=== PATIENT | female | born 1995 | race American Indian/Alaskan Native ===

== ENCOUNTER 2018-01-28 09:28 | Inpatient (IN) | payer OTHER ==
[2018-01-28 09:44] VITALS: BMI 27.3
--- NOTE | 2018-01-28 10:23 | C.PDOC ---
History Of Present Illness 22 y/o female presents to the ED requesting detox for heroin. Patient is currently 5 months and an active heroin user, last used this morning. Admits she also smokes marijuana. LMP was sometime in August 2017. Patient reports she was evaluated at [facility], and had a normal ultrasound 1 month ago. Currently she denies any abdominal pain, vaginal bleeding, discharge, fever, or other complaints. Also denies any suicidal or homicidal ideation. Time Seen by Provider: 01/28/18 09:57 Chief Complaint (Nursing): Substance Abuse History Per: Patient History/Exam Limitations: no limitations Onset/Duration Of Symptoms: Days Current Symptoms Are (Timing): Still Present Modifying Factor(s): Other (IV Heroin) Associated Symptoms: denies: Suicidal Thoughts, Suicidal Plan Past Medical History Reviewed: Historical Data, Nursing Documentation, Vital Signs Vital Signs: Last Vital Signs Temp 99.3 F 01/28/18 09:45 Pulse 102 H 01/28/18 09:45 Resp 17 01/28/18 09:45 BP 111/70 01/28/18 09:45 Pulse Ox 100 01/28/18 09:45 - Medical History Other PMH: Substance abuse Surgical History: No Surg Hx Family History: States: No Known Family Hx - Social History Hx Tobacco Use: Yes Hx Alcohol Use: No Hx Substance Use: Yes (heroin, marijuana) - Immunization History Hx Tetanus Toxoid Vaccination: No Hx Influenza Vaccination: No Hx Pneumococcal Vaccination: No Review Of Systems Constitutional: Negative for: Fever, Chills Cardiovascular: Negative for: Chest Pain Respiratory: Negative for: Shortness of Breath Gastrointestinal: Negative for: Nausea, Vomiting, Abdominal Pain, Diarrhea Genitourinary: Negative for: Dysuria, Vaginal Discharge, Vaginal Bleeding Physical Exam - Physical Exam Appears: Non-toxic, No Acute Distress Skin: Warm, Dry Head: Atraumatic, Normacephalic Eye(s): bilateral: Normal Inspection, PERRL, EOMI Oral Mucosa: Moist Neck: Normal ROM Chest: Symmetrical Cardiovascular: Rhythm Regular, No Murmur Respiratory: Normal Breath Sounds, No Accessory Muscle Use Gastrointestinal/Abdominal: Soft, No Tenderness, No Distention, No Guarding Back: Normal Inspection Extremity: Bilateral: Atraumatic, Normal Color And Temperature, Normal ROM Neurological/Psych: Oriented x3, Normal Speech ED Course And Treatment O2 Sat by Pulse Oximetry: 100 (RA) Pulse Ox Interpretation: Normal Medical Decision Making Medical Decision Making: Plan: Blood work and urine sent to the lab. Spoke with animal shelter worker, patient will also need OB consult. Disposition - Disposition - PA / ORGANIZATIONAL DEVELOPMENT MANAGER / Resident Statement MD/DO has reviewed & agrees with the documentation as recorded. - Scribe Statement The provider has reviewed the documentation as recorded by the Scribe (La Pa) All medical record entries made by the Scribe were at my direction and personally dictated by me. I have reviewed the chart and agree that the record accurately reflects my personal performance of the history, physical exam, medical decision making, and the department course for this patient. I have also personally directed, reviewed, and agree with the discharge instructions and disposition.
[2018-01-28 10:38] LABS: BASO # 0.1 K/uL (0.0-0.2); EOS # 0.1 K/uL (0.0-0.7); HEMOGLOBIN 11.2 g/dL (11.0-16.0); LYMPH # 2.1 K/uL (1.0-4.3); LYMPH % 19.7 % (20.0-40.0); MEAN CELL VOLUME 82.3 fL (81.0-99.0); MEAN CORPUSCULAR HEMOGLOBIN 27.7 pg (27.0-31.0); MEAN CORPUSCULAR HGB CONC 33.6 g/dL (33.0-37.0); MEAN PLATELET VOLUME 7.1 fL (7.2-11.7); MONO # 0.8 K/uL (0.0-0.8); MONO % 7.3 % (0.0-10.0); NEUT # 7.5 K/uL (1.8-7.0); NRBC % 0.1 % (0.0-2.0); RBC 4.04 Mil/uL (3.80-5.20); RED CELL DISTRIBUTION WIDTH 14.7 % (11.5-14.5); WHITE BLOOD COUNT 10.5 K/uL (4.8-10.8)
--- NOTE | 2018-01-28 10:40 | C.PDOC ---
History Of Present Illness 22 y/o female presents to the ED requesting detox for heroin. Patient is currently 5 months and an active heroin user, last used this morning. Admits she also smokes marijuana. LMP was sometime in August 2017. Patient reports she was evaluated at [facility], and had a normal ultrasound 1 month ago. Currently she denies any abdominal pain, vaginal bleeding, discharge, fever, or other complaints. Also denies any suicidal or homicidal ideation. Time Seen by Provider: 01/28/18 09:57 Chief Complaint (Nursing): Substance Abuse History Per: Patient History/Exam Limitations: no limitations Onset/Duration Of Symptoms: Hrs Current Symptoms Are (Timing): Still Present Modifying Factor(s): Other (IV heroin) Associated Symptoms: denies: Suicidal Thoughts, Suicidal Plan Past Medical History Reviewed: Historical Data, Nursing Documentation, Vital Signs Vital Signs: Last Vital Signs Temp 99.3 F 01/28/18 09:45 Pulse 102 H 01/28/18 09:45 Resp 17 01/28/18 09:45 BP 111/70 01/28/18 09:45 Pulse Ox 100 01/28/18 10:26 - Medical History Other PMH: Substance abuse Surgical History: No Surg Hx Family History: States: No Known Family Hx - Social History Hx Tobacco Use: Yes Hx Alcohol Use: No Hx Substance Use: Yes (heroin, marijuana) - Immunization History Hx Tetanus Toxoid Vaccination: No Hx Influenza Vaccination: No Hx Pneumococcal Vaccination: No Review Of Systems Constitutional: Negative for: Fever, Chills Cardiovascular: Negative for: Chest Pain Respiratory: Negative for: Shortness of Breath Gastrointestinal: Negative for: Nausea, Vomiting, Abdominal Pain Genitourinary: Negative for: Dysuria, Vaginal Discharge, Vaginal Bleeding Physical Exam - Physical Exam Appears: Non-toxic, No Acute Distress Skin: Normal Color, Warm, Dry Head: Atraumatic, Normacephalic Eye(s): bilateral: Normal Inspection, PERRL, EOMI Oral Mucosa: Moist Neck: Normal ROM Chest: Symmetrical Cardiovascular: Rhythm Regular, No Murmur Respiratory: Normal Breath Sounds, No Rales, No Rhonchi, No Wheezing Gastrointestinal/Abdominal: Bowel Sounds (normal), Soft, No Tenderness, No Guarding Back: Normal Inspection Extremity: Bilateral: Atraumatic, Normal Color And Temperature Neurological/Psych: Oriented x3, Normal Speech ED Course And Treatment - Laboratory Results Result Diagrams: 01/28/18 10:34 01/28/18 10:34 Lab Interpretation: Normal Urine POC: Positive O2 Sat by Pulse Oximetry: 100 (RA) Pulse Ox Interpretation: Normal - CT Scan/US OB ultrasound Other Rad Studies (CT/US): Read By Radiologist, Radiology Report Reviewed CT/US Interpretation: Accession No. : [id number]. Patient Name / ID : PARKER FAULKNER N / [id number]. Exam Date : 01/28/2018 11:50:04 ( Approved ). Study Comment : Sex / Age : F / 22Y. Creator : Daja العراقي V. Dictator : Daja العراقي V. Curriculum Development Manager : Mailer Apprentice : Daja العراقي V. Approver2 : Report Date : 01/28/2018 13:24:19. My Comment : . Date of service: 01/28/2018. PROCEDURE: OB Pelvic Ultrasound. HISTORY: abdominal pain. LMP: 09/03/2017. COMPARISON: None available. FINDINGS: UTERUS: Gestational sac: Single intrauterine gestation. Heart rate: 144 bpm. age (Ultrasound estimated): 14 weeks 2 days +/-1 week 0 days. Patricia-gestational hemorrhage: None. Date of delivery (Ultrasound estimated) : 07/27/2018. Anterior placenta. The inferior edge of the placenta is probably just at and/or just slightly greater than 2 cm from the cervix. Imaging here somewhat limited. presentation is breech. anatomy is limited. BPD 2.54 cm corresponds to 14 weeks 3 days. Abdominal circumference 7.94 cm corresponds to 14 weeks 2 days. Head circumference 9.36 cm corresponds to 14 weeks 2 days. Femur length 1.35 cm corresponds to 14 weeks 0 days. Uterus unremarkable. No gross uterine masses seen. CERVIX: Measures 3.8 cm. Long and closed. No cervical abnormality seen. RIGHT OVARY: Not visualized. LEFT OVARY: Not visualized. FREE FLUID: None. OTHER FINDINGS: None. IMPRESSION: Single intrauterine gestation with normal cardiac activity. presentation at this time is breech. Placenta is anterior. The inferior edge of the placenta is somewhat limited in terms of its optimal visualization is estimated to be approximately 2 cm from the int ernal cervical os. Continued follow-up here recommended. Patient's ultrasound complex sent age is 14 weeks 2 days +/-1 week 0 days gestation. This contrasts with the clinical dates per LMP of a gestational age of 21 weeks 0 days. anatomy limited. Follow-up recommended. Progress Note: Case discussed and patient evaluated by spout worker who request OB consult. Case discussed with JOB PRESS OPERATOR Dr Thomas who request US. Case discussed with dining service worker who request admission to Detox Reassessment Condition: Unchanged - Physician Consult Information Physician Contacted: Denise Infante Outcome Of Conversation: admit Medical Decision Making Medical Decision Making: Plan: Blood work and urine sent for medical clearance. Spoke with dining service worker, patient will also need OB consult. Discussed with OB on-call, Dr. Thomas, who will come to evaluate patient in the ED. Requesting ultrasound. Ultrasound reviewed, shows single IUP with gestational age of 14 weeks 2 days +/-1 week. Still pending urine drug screen. 16:20 All labs back, and reviewed. U-tox (+) for cannabinoids and opiates. Patient is medically cleared for detox, notified crisis/detox team. Disposition Discussed With .: Denise Infante Doctor Will See Patient In The: Hospital - Disposition Disposition: HOSPITALIZED Disposition Time: 16:40 Condition: STABLE Forms: wishkicker (Kinyarwanda) - POA Present On Arrival: None - Clinical Impression Clinical Impression: Drug dependence - PA / DEPENDENCY COUNSELOR / Resident Statement MD/DO has reviewed & agrees with the documentation as recorded. - Scribe Statement The provider has reviewed the documentation as recorded by the Scribe (La Pa) All medical record entries made by the Scribe were at my direction and p ersonally dictated by me. I have reviewed the chart and agree that the record accurately reflects my personal performance of the history, physical exam, medical decision making, and the department course for this patient. I have also personally directed, reviewed, and agree with the discharge instructions and disposition. Decision To Admit - Pt Status Changed To: Hospital Disposition Of: Inpatient - Admit Certification Admit to Inpatient:: After my assessment, the patient will require hospi talization for at least two midnights. This is because of the severity of symptoms shown, intensity of services needed, and/or the medical risk in this patient being treated as an outpatient. - InPatient: Physician Admission Certification: I certify that this patient requires 2 or more midnights of care for the following reason:: opioid dependence - . Bed Request Type: Detox Patient Diagnosis: Drug abuse
[2018-01-28 10:56] LABS: ALB/GLOB RATIO 1.4 (1.0-2.1); ALBUMIN 3.5 g/dL (3.5-5.0); ALT/SGPT 15 U/L (9-52); AST/SGOT 14 U/L (14-36); BLOOD UREA NITROGEN 7 mg/dL (7-17); CALCIUM 8.7 mg/dl (8.6-10.4); GFR NON-AFRICAN AMERICAN > 60
--- NOTE | 2018-01-28 13:28 | US ---
Date of service: 01/28/2018 PROCEDURE: OB Pelvic Ultrasound HISTORY: abdominal pain LMP: 09/03/2017 COMPARISON: None available. FINDINGS: UTERUS: Gestational sac: Single intrauterine gestation. Heart rate: 144 bpm. age (Ultrasound estimated): 14 weeks 2 days +/-1 week 0 days. Patricia-gestational hemorrhage: None. Date of delivery (Ultrasound estimated) : 07/27/2018 Anterior placenta. The inferior edge of the placenta is probably just at and/or just slightly greater than 2 cm from the cervix. Imaging here somewhat limited. presentation is breech. anatomy is limited. BPD 2.54 cm corresponds to 14 weeks 3 days. Abdominal circumference 7.94 cm corresponds to 14 weeks 2 days. Head circumference 9.36 cm corresponds to 14 weeks 2 days. Femur length 1.35 cm corresponds to 14 weeks 0 days. Uterus unremarkable. No gross uterine masses seen. CERVIX: Measures 3.8 cm. Long and closed. No cervical abnormality seen. RIGHT OVARY: Not visualized LEFT OVARY: Not visualized. FREE FLUID: None. OTHER FINDINGS: None. IMPRESSION: Single intrauterine gestation with normal cardiac activity. presentation at this time is breech. Placenta is anterior. The inferior edge of the placenta is somewhat limited in terms of its optimal visualization is estimated to be approximately 2 cm from the internal cervical os. Continued follow-up here recommended. Patient's ultrasound complex sent age is 14 weeks 2 days +/-1 week 0 days gestation. This contrasts with the clinical dates per LMP of a gestational age of 21 weeks 0 days. anatomy limited. Follow-up recommended.
[2018-01-28 14:50] LABS: HCG,QUALITATIVE URINE POSITIVE (NEGATIVE)
[2018-01-28 14:52] LABS: SQUAMOUS EPITHIAL 2 /hpf (0-5); URINE BILIRUBIN NEGATIVE (NEGATIVE); URINE BLOOD NEGATIVE (NEGATIVE); URINE CLARITY Clear (Clear); URINE COLOR Yellow (YELLOW); URINE GLUCOSE (UA) NORMAL (Normal); URINE LEUKOCYTE ESTERASE NEG Leu/uL (Negative); URINE PROTEIN 1+ mg/dL (NEGATIVE)
--- NOTE | 2018-01-28 15:16 | CP.PCM.CON ---
<Danie Patterson - Last Filed: 01/28/18 15:33> History of Present Illness - History of Present Illness History of Present Illness: OB-TIE HACKER Consult Note for Dr. Thomas This is a 22 y o female , PMhx heroin abuse presents to ED requesting detox. Reason for OB-TIE HACKER consult was for IUP present on sonogram. Pt states that her LMP was 08/28/17, was aware that she was but did not know how many weeks along she was. C/o abd pain and cramping, started today as per pt. Denied any inciting factors. Localized pain to diffuse b/l lower abd region. Pain radiates to lower back. Stated nothing makes pain better or worse. Did not take any pain meds at home for symptoms. Denied vaginal bleeding, vaginal discharge, dysuria, burning with urination, or flank pain. Denied fever/chills, headache, dizziness, chest pain, sob, n/v/d/c, or other symptoms. PMhx: heroin abuse PSurgHx: denies Allergies: shellfish Home meds: denies Fam hx: denies Soc hx: no smoking or EtOH use; admits to heroin use and marijuana use; sexually active sometimes using condoms PGynHx: last pap smear neg as per pt in 2018, no hx STDs; states periods are regular with heavy flow; LMP 08/28/17 PObHx: hx no care during current In ED, pt had U/s which demonstrated gestational age 14 wks 2 days +/- 1 week; HR 144 bpm, anterior placenta. Review of Systems - Constitutional Constitutional: absent: Chills, Fatigue, Fever, Malaise, Weight Loss, Weakness - EENT Eyes: absent: Change in Vision - Breasts Breasts: absent: Pain, Nipple Discharge - Respiratory Respiratory: absent: Dyspnea, Wheezing - Gastrointestinal Gastrointestinal: Abdominal Pain. absent: Bloating, Change in Bowel Habits, Constipation, Diarrhea, Nausea, Vomiting - Genitourinary Genitourinary: absent: Difficulty Urinating, Dysuria, Flank Pain, Hematuria, Urinary Urgency, Freq UTI - Reproductive: Female Reproductive:Female: As Per HPI, Heavy Menses, Pelvic Pain. absent: Amenorrhea, Vaginal Discharge, Vaginal Pruritis - Musculoskeletal Musculoskeletal: absent: Arthralgias, Numbness, Tingling - Integumentary Integumentary: absent: Rash Past Patient History - Infectious Disease Hx of Infectious Diseases: None - Past Social History Smoking Status: Light Smoker < 10 Cigarettes Daily - CARDIAC Hx Cardiac Disorders: No Hx Hypertension: No - PULMONARY Hx Tuberculosis: No - NEUROLOGICAL HX Cerebrovascular Accident: No Hx Seizures: No - HEMATOLOGICAL/ONCOLOGICAL Hx Cancer: No Hx Human Immunodeficiency Virus (HIV): No - GENITOURINARY/GYNECOLOGICAL Hx Sexually Transmitted Disorders: No - PSYCHIATRIC Hx Substance Use: Yes (heroin, marijuana) - SURGICAL HISTORY Hx Surgeries: No - ANESTHESIA Hx Anesthesia: No Meds Allergies/Adverse Reactions: Allergies Allergy/AdvReac Type Severity Reaction Status Date / Time shellfish derived Allergy Severe ANAPHYLAXIS Verified 01/28/18 09:43 Physical Exam - Constitutional Appears: Non-toxic, No Acute Distress - Head Exam Head Exam: ATRAUMATIC, NORMOCEPHALIC - Eye Exam Eye Exam: EOMI, Normal appearance, PERRL - ENT Exam ENT Exam: Mucous Membranes Moist - Neck Exam Neck exam: Positive for: Full Rom, Normal Inspection - Respiratory Exam Respiratory Exam: Clear to Auscultation Bilateral, NORMAL BREATHING PATTERN. absent: Rales, Rhonchi, Wheezes - Cardiovascular Exam Cardiovascular Exam: REGULAR RHYTHM, +S1, +S2. absent: Gallop, Rubs, Systolic Murmur - GI/Abdominal Exam GI & Abdominal Exam: Normal Bowel Sounds, Soft. absent: Distended, Firm, Guarding, Rebound, Rigid, Tenderness - Exam External exam: NORMAL EXTERNAL EXAM. absent: Ecchymosis, Erythema, Lacerations, Lesions, Swelling Speculum exam: NORMAL SPECULUM EXAM. absent: Cervical Discharge, Erythema, Foreign Body, Laceration, Vaginal Bleeding, Vaginal Discharge Bimanual exam: NORMAL BIMANUAL EXAM. absent: Adenexal Mass, Cervical Motion Tendernes, Uterine Tenderness - Extremities Exam Extremities exam: Positive for: full ROM, normal capillary refill, normal inspection, pedal pulses present. Negative for: calf tenderness, pedal edema - Neurological Exam Neurological exam: Alert, CN II-XII Intact, Normal Gait, Oriented x3 - Psychiatric Exam Psychiatric exam: Flat Affect - Skin Skin Exam: Dry, Intact, Normal Color, Warm Results - Vital Signs Recent Vital Signs: Last Vital Signs Temp 98.5 F 01/28/18 13:40 Pulse 74 01/28/18 13:40 Resp 20 01/28/18 13:40 BP 94/57 L 01/28/18 13:40 Pulse Ox 100 01/28/18 13:41 - Labs Result Diagrams: 01/28/18 10:34 01/28/18 10:34 Labs: Laboratory Results - last 24 hr 01/28/18 01/28/18 01/28/18 10:34 10:34 14:40 WBC 10.5 RBC 4.04 Hgb 11.2 Hct 33.2 L MCV 82.3 MCH 27.7 MCHC 33.6 RDW 14.7 H Plt Count 300 MPV 7.1 L Neut % (Auto) 71.0 Lymph % (Auto) 19.7 L [place] % (Auto) 7.3 Eos % (Auto) 1.0 Baso % (Auto) 1.0 Neut # (Auto) 7.5 H Lymph # (Auto) 2.1 [place] # (Auto) 0.8 Eos # (Auto) 0.1 Baso # (Auto) 0.1 Sodium 135 Potassium 3.7 Chloride 105 Carbon Dioxide 21 L Anion Gap 13 BUN 7 Creatinine 0.4 L Est GFR ( Amer) > 60 Est GFR (Non-Af Amer) > 60 Random Glucose 119 H Calcium 8.7 Phosphorus 3.0 Magnesium 1.8 Total Bilirubin 0.1 L AST 14 ALT 15 Alkaline Phosphatase 41 Total Protein 6.0 L Albumin 3.5 Globulin 2.5 Albumin/Globulin Ratio 1.4 Urine Color Yellow Urine Clarity Clear Urine pH 6.0 Ur Specific [place] 1.032 H Urine Protein 1+ H Urine Glucose (UA) Normal Urine Ketones Trace Urine Blood Negative Urine Nitrate Negative Urine Bilirubin Negative Urine Urobilinogen 4.0 H Ur Leukocyte Esterase Neg Urine WBC (Auto) 2 Urine RBC (Auto) 4 H Ur Squamous Epith Cells 2 Urine HCG, Qual Positive Alcohol, Quantitative < 10 Assessment & Plan - Assessment and Plan (Free Text) Assessment: This is a 22 y o female , PMhx heroin abuse presents to ED requesting detox. Reason for OB-TIE HACKER consult was for IUP present on sonogram. Likely 2/2 to threatened miscarriage. Stable at this time, no vaginal bleeding, but currently having abdominal cramping. Likely 2/2 dehydration, U/a demonstrates no signs of UTI at this time. Plan: Afebrile, vitals stable at this time. U/a demonstrating no signs of UTI at this time; urine beta-hCG positive. Ordered genital cx and GC/Chlamydia. Ordered HIV, Hep B, Rubella, and RPR. U/s findings as discussed above. Will sign off at this time, please re-consult if needed. Thank you for allowing us to participate in the care of this patient. Pt seen, examined with, and plan d/w Dr. Thomas, attending physician. Danie Patterson, DO PGY-1 <Keshia Thomas - Last Filed: 01/28/18 22:58> Meds - Medications Medications: Current Medications Acetaminophen (Tylenol 325mg Tab) 650 mg PO Q4H PRN PRN Reason: Fever greater than 101 F Diphenhydramine HCl (Benadryl) 25 mg PO Q6 PRN PRN Reason: Anxiety Metoclopramide HCl (Reglan) 5 mg PO Q6 PRN PRN Reason: Nausea/Vomiting Multivit/Folic Acid/Iron () 1 tab PO DAILY JOHNNY Results - Vital Signs Recent Vital Signs: Last Vital Signs Temp 98.2 F 01/28/18 21:16 Pulse 82 01/28/18 21:16 Resp 18 01/28/18 21:16 BP 91/57 L 01/28/18 21:16 Pulse Ox 100 01/28/18 21:16 - Labs Result Diagrams: 01/28/18 10:34 01/28/18 10:34 Labs: Laboratory Results - last 24 hr 01/28/18 01/28/18 01/28/18 10:34 10:34 14:40 WBC 10.5 RBC 4.04 Hgb 11.2 Hct 33.2 L MCV 82.3 MCH 27.7 MCHC 33.6 RDW 14.7 H Plt Count 300 MPV 7.1 L Neut % (Auto) 71.0 Lymph % (Auto) 19.7 L [place] % (Auto) 7.3 Eos % (Auto) 1.0 Baso % (Auto) 1.0 Neut # (Auto) 7.5 H Lymph # (Auto) 2.1 [place] # (Auto) 0.8 Eos # (Auto) 0.1 Baso # (Auto) 0.1 Sodium 135 Potassium 3.7 Chloride 105 Carbon Dioxide 21 L Anion Gap 13 BUN 7 Creatinine 0.4 L Est GFR ( Amer) > 60 Est GFR (Non-Af Amer) > 60 Random Glucose 119 H Calcium 8.7 Phosphorus 3.0 Magnesium 1.8 Total Bilirubin 0.1 L AST 14 ALT 15 Alkaline Phosphatase 41 Total Protein 6.0 L Albumin 3.5 Globulin 2.5 Albumin/Globulin Ratio 1.4 Urine Color Yellow Urine Clarity Clear Urine pH 6.0 Ur Specific [place] 1.032 H Urine Protein 1+ H Urine Glucose (UA) Normal Urine Ketones Trace Urine Blood Negative Urine Nitrate Negative Urine Bilirubin Negative Urine Urobilinogen 4.0 H Ur Leukocyte Esterase Neg Urine WBC (Auto) 2 Urine RBC (Auto) 4 H Ur Squamous Epith Cells 2 Urine HCG, Qual Positive Urine Opiates Screen Urine Methadone Screen Ur Barbiturates Screen Ur Phencyclidine Scrn Ur Amphetamines Screen U Benzodiazepines Scrn U Oth Cocaine Metabols U Cannabinoids Screen Alcohol, Quantitative < 10 RPR Rubella IgG Antibody Blood Type Antibody Screen 01/28/18 01/28/18 01/28/18 14:40 15:01 15:01 WBC RBC Hgb Hct MCV MCH MCHC RDW Plt Count MPV Neut % (Auto) Lymph % (Auto) [place] % (Auto) Eos % (Auto) Baso % (Auto) Neut # (Auto) Lymph # (Auto) [place] # (Auto) Eos # (Auto) Baso # (Auto) Sodium Potassium Chloride Carbon Dioxide Anion Gap BUN Creatinine Est GFR ( Amer) Est GFR (Non-Af Amer) Random Glucose Calcium Phosphorus Magnesium Total Bilirubin AST ALT Alkaline Phosphatase Total Protein Albumin Globulin Albumin/Globulin Ratio Urine Color Urine Clarity Urine pH Ur Specific [place] Urine Protein Urine Glucose (UA) Urine Ketones Urine Blood Urine Nitrate Urine Bilirubin Urine Urobilinogen Ur Leukocyte Esterase Urine WBC (Auto) Urine RBC (Auto) Ur Squamous Epith Cells Urine HCG, Qual Urine Opiates Screen Positive H Urine Methadone Screen Negative Ur Barbiturates Screen Negative Ur Phencyclidine Scrn Negative Ur Amphetamines Screen Negative U Benzodiazepines Scrn Negative U Oth Cocaine Metabols Negative U Cannabinoids Screen Positive H Alcohol, Quantitative RPR Nonreactive Rubella IgG Antibody Positive Blood Type A POSITIVE Antibody Screen Negative Assessment & Plan - Assessment and Plan (Free Text) Assessment: Assessment: 1. 22 yo G1 with an IUP at 14.2 weeks per US with + FHT's 144 2. Low abdominal cramping and probable Threatened Miscarriage 3. Severe Dehydration, per UA and drinks little to no water 4. For Detox Plan: PLAN: 1. Cultures and Walk-in OB labs ordered 2. Encouraged to seek care [facility] 3. Will start PNV daily and will order 4. Encouraged to increase po water intake5. 5. Agreed with Detox plan - Date & Time Date: 01/28/18 Time: 21:55
[2018-01-28 16:02] LABS: BARBITURATES, UR NEGATIVE (NEGATIVE); BENZODIAZEPINES, UR NEGATIVE (NEGATIVE); PHENCYCLIDINE, UR NEGATIVE (NEGATIVE)
[2018-01-28 16:14] LABS: OPIATES, UR POSITIVE (NEGATIVE)
[2018-01-28 18:21] LABS: RAPID PLASMA REAGIN NONREACTIVE (NONREACTIVE)
--- NOTE | 2018-01-28 20:43 | PCM.BM ---
<Jaylin Nguyen - Last Filed: 01/28/18 20:41> Treatment Plan Problems - Problems identified on initial assessmt Opiate Dependence Date Initiated: 01/28/18 Time Initiated: 20:42 Assessment reference: NA Status: Active Treatment assets and liabiliti Patient Assests: ADL independent Patient Liabilities: substance abuse - Milieu Protocol Maintain good personal hygiene: daily Encourage regular showers, daily Remind patient to perform daily oral care, daily Assist patient to perform ADL's Maintain personal safety: every shift Educate patient to report safety concerns to staff, every shift Monitor environment for contraband/sharps Medication safety: Monitor for expected outcome, potential side effects: every shift, Assess barriers to learning: every shift, Assess readiness for medication education: every shift <Bartolome Guzman - Last Filed: 01/29/18 15:31> - Diagnosis (1) Opioid use disorder, severe, dependence Status: Acute Interventions: 01/29/18 15:31 * Assess 7x/week regarding severity of withdrawal * Educate regarding risks, benefits, side effects and alternatives of medications * Use Motivational Interviewing for abstinence * Use CBT for relapse prevention * Medication management for withdrawal symptoms * Encourage medication assisted treatment *
[2018-01-29] MEDS: Prenatal Multivit/Folic Acid/Iron Tab PO SCH (10:45)
--- NOTE | 2018-01-29 14:38 | PCM.PSYCH ---
Initial Psychiatric Evaluation - Initial Psychiatric Evaluation Type of Admission: Voluntary Legal Status: Capacity Chief Complaint (in patient's own words): "I have pain, withdrawing" History of Present Illness and Precipitating Events: The pt is seen, chart reviewed and case discussed Pt is a 22 year old female who lives with her mother and friend, was previously working as a home health aide and is currently 5 months presented to the ED requesting detox. She admits to sniffing 9 bags of heroin/day for the last 9 months. Her last use was yesterday around 7-8am when she sniffed 4 bags. She is visibly withdrawing. She had a period of sobriety for 2 months before relapsing again and states that her heroin use began when it was introduced to her by a friend. She states that she has accidentally overdosed 3 times in the past. No hx of detox or rehab Psych: Patient has a history of being admitted to a psychiatric hospital once in 7th grade but does not remember why. She has never been to detox or rehab before and states that she is scared. She has a history of depression for which she was previously treated. She additionally admits to a hx of anxiety and moderate depressive sxs. Patient admits depressed mood, anhedonia, poor appetite, poor sleep, guilt. Patient denies S/I or thoughts of harming others, changes in concentration, manic symptoms, auditory/visual hallucinations. Medical hx: Currently 5 months but 14 weeks per our OBGYN , migranes Allergy: Shellfish --> Laryngioedema Surg: Denies Fam hx: Denies Current Medications: Active Medications Generic Name Dose Route Start Last Admin Trade Name Salima PRN Reason Stop Dose Admin Acetaminophen 650 mg 01/28/18 21:40 01/29/18 07:03 Tylenol 325mg Tab PO 650 mg Q4H PRN Administration Fever greater than 101 F Diphenhydramine HCl 25 mg 01/28/18 21:42 01/29/18 08:42 Benadryl PO 25 mg Q6 PRN Administration Anxiety Methadone HCl 20 mg 01/29/18 10:00 01/29/18 10:46 Methadone PO 02/03/18 09:59 20 mg Q24H JOHNNY Administration Taper Metoclopramide HCl 5 mg 01/28/18 21:43 Reglan PO Q6 PRN Nausea/Vomiting Multivit/Folic Acid/Iron 1 tab 01/29/18 10:00 01/29/18 10:45 PO Not Given DAILY JOHNNY Past Psychiatric History - Past Psychiatric History Previous Treatment History: None Pertinent Medical Hx (Current Medical&Sleep Prob, Allergies): Allergies Allergy/AdvReac Type Severity Reaction Status Date / Time shellfish derived Allergy Severe ANAPHYLAXIS Verified 01/28/18 09:43 Sumatriptan Succinate [Imitrex] 50 mg PO DAILY PRN 12/15/17 Review of Systems - Neurological Neurological: UNREMARKABLE - Psychiatric Psychiatric: Abnormal Sleep Pattern, Anhedonia, Anxiety, Auditory Hallucinations, Depression, Difficulty Concentrating, Irritability. absent: Hallucinations, Homicidal Ideation, Paranoia, Suicidal Ideation Mental Status Examination - Personal Presentation Personal Presentation: Looks stated age - Affect Affect: Constricted - Motor Activity Motor Activity: Calm - Reliability in Providing Information Reliability in Providing Information: Fair - Speech Speech: Organized - Mood Mood: Depressed, Anxious - Formal Thought Process Formal Thought Process: No Impairment - Cognitive Functions Orientation: Person, Place, Situation, Time Sensorium: Alert Attention/Concentration: Easily distracted Abstract Thinking: Atkins Estimate of Intelligence: Below average Judgement: Imparied, as evidence by: Poor judgement Memory: Recent intact, as evidence by: Ability to recall events of the day, Remote intact, as evidenced by: Abilit to recall sig. life events - Risk Risk: Withdrawal, Diminished functioning - Strength & Assets Inventory Strength & Assets Inventory: Cooperative - Limitations Limitations: Other DSM 5 DX - DSM 5 DSM 5 Diagnosis: Opioid withdrawal Opioid use d/o - severe major depression, single, moderate cannabis use d/o - severe - Recommended/Plan of Treatment Treatment Recommendations and Plan of Treatment: Taper with methadone As needed medications All risks, benefits and alternatives of the meds discussed, including their risks in and the pt agreed and understood. Attend groups and activities Supportive therapy and psychoeducation ME for abstinence CBT for relapse prevention Encourage MAT Refer to rehab or IOP, and self-help groups Consider mommy and me program Teach healthy lifestyle methods, i.e. diet, exercise, meditation Smoking cessation with ME Nicotine patch if needed OB help appreciated 34 min Projected ELOS: 4-5 days Prognosis: good w treatment - Smoking Cessation Smoking Cessation Initiated: Yes
[2018-01-29 21:10] VITALS: O2SAT 100
[2018-01-30 06:07] VITALS: PULSE 81
[2018-01-30] MEDS: Prenatal Multivit/Folic Acid/Iron Tab PO SCH (09:14)
[2018-01-30 09:23] VITALS: BP 94/58; RESP 20; TEMP 98.7
== END 2018-01-30 13:15 | disposition left against medical advice (07) | DRG 566 ==
LOC: C.ER 09:28 → C.7D 16:33
PROVIDERS: ADMIT Psychiatry & Neurology Psychiatry; ATTEND Psychiatry & Neurology Psychiatry
PROC: HZ2ZZZZ Detoxification Services for Substance Abuse Treatment (ICD-10-PCS; principal; 2018-01-28)
PROC: HZ81ZZZ Medication Management for Substance Abuse Treatment, Methadone Maintenance (ICD-10-PCS; 2018-01-28)
DX: O99.322 Drug use complicating pregnancy, second trimester (principal); F32.1 Major depressive disorder, single episode, moderate; F11.23 Opioid dependence with withdrawal; O20.0 Threatened abortion; O99.342 Other mental disorders complicating pregnancy, second trimester; O99.282 Endocrine, nutritional and metabolic diseases complicating pregnancy, second trimester; E86.0 Dehydration; F12.90 Cannabis use, unspecified, uncomplicated; O99.332 Smoking (tobacco) complicating pregnancy, second trimester; F17.210 Nicotine dependence, cigarettes, uncomplicated; Z3A.14 14 weeks gestation of pregnancy